=== PATIENT | female | born 1985 | race Caucasian/White ===

== ENCOUNTER 2020-05-19 13:37 | Outpatient (CLI) | payer OTHER, SELFPAY ==
[2020-05-20 14:04] LABS: SARS-CoV-2 RNA PCR Negative
== END 2020-05-19 13:38 | disposition home or self-care (01) ==
LOC: CHSLAB 13:43
PROVIDERS: PCP Internal Medicine; Visit Provider Internal Medicine
DX: Z20.828 Contact with and (suspected) exposure to other viral communicable diseases (principal)
CPT/HCPCS: 87635; C9803; U0003

== ENCOUNTER 2024-02-22 15:14 | Outpatient (NON) | payer BC, SELFPAY | END 2024-02-22 15:15 | disposition home or self-care (01) | LOC: CHSLAB 15:16 | PROVIDERS: Visit Provider Family Medicine | DX: R30.0 Dysuria (principal) | CPT/HCPCS: 87086 ==

== ENCOUNTER 2024-10-28 16:12 | Outpatient (NON) | payer BC, SELFPAY ==
[2024-10-28 16:31] LABS: Add Urine Microscopic? NO; Appearance Urine Clear (Clear); Bilirubin Urine Negative (Negative); Blood Urine Negative (Negative); Color Urine Light Yellow (Yellow); Glucose Urine UA Negative (Negative); Ketones Urine Trace (Negative); Leukocyte Esterase Ur Negative LEU/UL (Negative); Nitrate Urine Negative (Negative); Protein Urine Negative (Negative); Specific Grav Ur <= 1.005 (1.010-1.020); Urobilinogen Urine 0.2 mg/dL (0.2-1.0)
--- OUTSIDE RECORDS SUMMARY | 2024-10-28 18:12 | XMS_ITS | Clinical Summary ---
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 Pulse 68 06/24/2015 9:41 AM DISPERSION MIXER Temperature - - Respiratory Rate - - Oxygen Saturation - - Inhaled Oxygen Concentration - - Weight 59.9 kg (132 lb) 06/24/2015 9:41 AM DISPERSION MIXER Height 175.3 cm (5' 9 ) 06/24/2015 9:41 AM DISPERSION MIXER Body Mass Index 19.49 06/24/2015 9:41 AM DISPERSION MIXER Plan of Treatment Health Maintenance Due Date Last Done Comments Cervical Cancer Screening Pa p Smear (Age 30 to 64) Every 3 Years 1985 Annual Physical 1988 Hepatitis C 2003 DTaP, Tdap and Td Vaccines ( 1 - Tdap) 2004 Hepatitis B Vaccines (1 of 3 - 19+ 3-dose series) 2004 Cervical Cancer Screening Pa p with HPV Testing (Age 30 to 64) Every 5 Years 2015 Cervical Cancer Screening with HPV 2015 COVID-19 Vaccine (2023-2 5 season) 2024 HPV Vaccines Aged Out No longer eligi ble based on patient's age to complete this topic Meningococcal B Vaccine Aged Out No l onger eligible based on patient's age to complete this topic Meningococcal Vaccine Aged Out No kelton heydi eligible based on patient's age to complete this topic Pneumococcal Vaccine: Pediat rics (0 to 5 Years) and At-Risk Patients (6 to 49 Years) Aged Out No longer eligible b ased on patient's age to complete this topic RSV Immunizations Under 20 Months Aged Out No longer eligible based on patient's age to complete this topic Advance Directives Documents on File Type Date Recorded 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
== END 2024-10-28 16:13 | disposition home or self-care (01) ==
LOC: CHSLAB 16:14
PROVIDERS: PCP Family Medicine; Visit Provider Nurse Practitioner Family
DX: Z87.898 Personal history of other specified conditions (principal)
CPT/HCPCS: 81003

== ENCOUNTER 2024-10-31 12:25 | Outpatient (CLI) | payer BC, SELFPAY ==
[2024-10-31 12:43] LABS: Basophils Absolute Auto 0.04 K/mm3 (0.00-0.10); Basophils Percent Auto 0.4 % (0.0-1.0); Eosinophils Absolute Auto 0.06 K/mm3 (0.02-0.50); Eosinophils Percent Auto 0.6 % (1.0-6.0); Hematocrit 40.2 % (35.0-49.0); Hemoglobin 13.2 g/dL (12.0-15.0); Immature Granulocyte Absolute 0.04 K/mm3 (0.00-0.00); Immature Granulocyte Percent A 0.4 % (0.0-0.0); Lymphocytes Absolute Auto 1.78 K/mm3 (1.10-4.50); Lymphocytes Percent Auto 19.2 % (18.0-42.0); Mean Corpuscular HGB Conc 32.8 g/dL (32-36); Mean Corpuscular Hemoglobin 28.8 pg (27.0-31.0); Mean Corpuscular Volume 87.8 fL (78.0-102.0); Mean Platelet Volume 10.5 fl (9.2-11.8); Monocytes Absolute Auto 0.51 K/mm3 (0.10-0.90); Monocytes Percent Auto 5.5 % (2.0-11.0); Neutrophils Absolute Auto 6.84 K/mm3 (1.70-7.20); Neutrophils Percent Auto 73.9 % (50.0-70.0); Platelet Count Result 240 K/mm3 (150-420); Red Blood Count 4.58 M/mm3 (4.20-5.40); White Blood Count 9.3 K/mm3 (4.8-10.8)
[2024-10-31 12:56] LABS: Pregnancy On Board Control Positive; Urine Pregnancy Test Positive
[2024-11-01 05:26] LABS: Alanine Aminotransferase 14 U/L (14-59); Albumin Level 4.4 g/dL (3.4-5.0); Alkaline Phosphatase 59 U/L (46-116); Anion Gap 11 mmol/L (4-12); Aspartate Amino Transferase 11 U/L (15-37); Bilirubin,Total 0.8 mg/dL (0.00-1.00); Blood Urea Nitrogen 8 mg/dL (7-18); Calcium 9.5 mg/dL (8.5-10.1); Carbon Dioxide 26 mmol/L (21-32); Chloride 102 mmol/L (98-108); Estimated Glomerular Filt Rate > 60; Folic Acid 16.5 ng/mL (8.6->20); Glucose 93 mg/dL (70-99); Osmolality Calculated 286 mOsm/kg (285-295); Potassium 4.2 mmol/L (3.5-5.1); Sodium 139 mmol/L (136-145); Total Protein 7.3 g/dL (6.4-8.2); Vitamin B12 331 pg/mL (193-986)
[2024-11-01 21:33] LABS: Vitamin D 25 Hydroxy 16 ng/mL (30-100)
== END 2024-10-31 12:26 | disposition home or self-care (01) ==
PROVIDERS: PCP Family Medicine; Visit Provider Family Medicine
DX: R30.0 Dysuria (principal); E53.8 Deficiency of other specified B group vitamins; E03.9 Hypothyroidism, unspecified; F98.8 Other specified behavioral and emotional disorders with onset usually occurring in childhood and adolescence; Z34.90 Encounter for supervision of normal pregnancy, unspecified, unspecified trimester
CPT/HCPCS: 36415; 80053; 81025; 82306; 82607; 82746; 84443; 84702; 85025

== ENCOUNTER 2024-11-08 08:04 | Outpatient (CLI) | payer BC, SELFPAY ==
--- NOTE | ~2024-11-08 | US_ITS ---
EXAMINATION: US OB transvaginal DATE: 11/08/2024 18:14 CDT INDICATION: Dating COMPARISON: 04/03/2024 TECHNIQUE: Real-time transabdominal obstetric ultrasound. FINDINGS: Quantitative beta hCG 59, 578 2 para 1 Estimated date of delivery by last menstrual period is 09/09/2024 A gestational sac is identified within the uterus. The mean gestational sac diameter measures 3 cm, corresponding to an approximate gestational age of 8 weeks and 1 day. A pole is identified, with a crown-rump length that measures 1.53 cm, corresponding to an appro ximate gestational age of 8 weeks and 0 days. cardiac activity is identified at a rate of 157 bpm. Despite prolonged interrogation, the right ovary was not visualized. The left ovary measures 3.1 x 3.2 x 2.0 cm. Estimated date of delivery by ultrasound is 06/19/2025 IMPRESSION: Single intrauterine gestation with an approximate gestational age of 8 weeks and 0 days, with c ardiac activity identified. Reviewed, dictated and finalized at location A. IMPRESSION: Single intrauterine gestation with an approximate gestational age of 8 weeks an d 0 days, with cardiac activity identified.
--- NOTE | ~2024-11-08 | US_ITS ---
EXAMINATION: US retroperitoneal comp DATE: 11/08/2024 08:43 INDICATION: Hematuria TECHNIQUE: Multiple ultrasound grayscale images of the kidneys were obtained. COMPARISON: None. FINDINGS: The right kidney measures 11.3 x 4.5 x 3.2 cm. The left kidney measures 12.1 x 5.0 x 5.0 cm. The kidn eys demonstrate normal echogenicity. There is no hydronephrosis in either kidney. No stones identifi ed. The bladder is decompressed which limits evaluation. IMPRESSION: 1. Normal kidneys without hydronephrosis. Reviewed, dictated and finalized at location B.
--- OUTSIDE RECORDS SUMMARY | 2024-11-08 08:08 | XMS_ITS | Clinical Summary ---
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 Pulse 68 06/24/2015 9:41 AM CUTTING AND BONING SUPERVISOR Temperature - - Respiratory Rate - - Oxygen Saturation - - Inhaled Oxygen Concentration - - Weight 59.9 kg (132 lb) 06/24/2015 9:41 AM CUTTING AND BONING SUPERVISOR Height 175.3 cm (5' 9 ) 06/24/2015 9:41 AM CUTTING AND BONING SUPERVISOR Body Mass Index 19.49 06/24/2015 9:41 AM CUTTING AND BONING SUPERVISOR Plan of Treatment Health Maintenance Due Date [...] Documents on File Type Date Recorded Patient Director Loss Prevention Expl anation Advance Directives and Living Will 04/28/2014 12:00 AM ADVANCED DIRECTIVES Advance Directives and Living Will 01/28/2013 12:00 AM ADVANCED DIRECTIVES Advance Directives and Living Will 01/28/2013 12:00 AM ADVANCED DIRECTIVES
== END 2024-11-08 08:05 | disposition home or self-care (01) ==
LOC: CHSIMG 08:05
PROVIDERS: PCP Family Medicine; Visit Provider Family Medicine
DX: Z34.90 Encounter for supervision of normal pregnancy, unspecified, unspecified trimester (principal); R31.9 Hematuria, unspecified; Z3A.08 8 weeks gestation of pregnancy
CPT/HCPCS: 76770; 76817